=== PATIENT | male | born 1990 | race Caucasian/White ===

== ENCOUNTER 2017-02-11 13:12 | Emergency (ER) | payer MEDICAID ==
[~2017-02-11] VITALS: Ht 190.5 cm; Wt 125.0 kg
[~2017-02-11 13:12] MED LIST: AMOXICILLIN 50500 MG PO; ASPIRIN 81M81 MG/TA2 PO; ATIVAN 0.50.5 MG/TAB PO; BACTRIM PO; BRILINTA90 MG PO; BUSPAR5 MG PO; CARBAMAZEPINE; CARBATROL100 MG PO; CARBATROL200 MG PO; CLEOCIN HC150 MG/CAP PO; COZAAR 25MG25 MG/TAB PO; DESYREL 50MG50 MG PO; DIFLUCAN 100MG100 MG PO; DIFLUCAN150 MG PO; DOXYCYCLINE 10100 MG PO; EPITOL; GLUMETZA; HUMALOG100 U/ML SC; HUMALOG100 U/ML SQ; HUMULIN 70/3100 U/ML SQ; INSULIN; JANUVIA100 MG PO; KEPPRA 500MG500 MG PO; KEPPRA1000 MG PO; KLONOPIN 0.5MG0.5 MG PO; LANTUS100 U/ML; LANTUS100 U/ML SC; LANTUS100 U/ML SQ; LEVAQUIN 5500 MG/TA1 PO; LEVEMIR FLEX100 U/ML SQ; LEXAPRO20 MG PO; LIPITOR 80MG80 MG PO; LORTAB 5/500 501 TAB PO; METFOMIN HYDRO850 MG PO; MIRTAZAPINE7.5 MG PO; NAPROSYN375 MG PO; NEXIUM 40MG40 MG PO; NITRO-DUR0.4 MG/PAT TD; NITROSTAT0.4 MG/TAB SL; NORCO 325 MG-51 TAB PO; NOVOLIN 70/30 710 ML SC; NOVOLIN R100 U/ML IJ; NOVOLOG 100U100 U/M1 SQ; NOVOLOG MIX 70/33 ML SC; NYSTATIN CREAM15 GM TP; PEN-VEE K500 MG PO; PEPCID 20MG TAB20 MG PO; PERCOCET 325 MG1 TA2 PO; PHENOBARB; PHENOBARBITAL PO; PHENOBARBITAL32.4 MG PO; PHENOBARBITAL64.8 MG PO; PLAVIX 75MG TAB75 MG PO; PROTONIX 40MG T40 MG PO; SEPTRA DS 8001 TAB PO; TEGRETOL 2200 MG/TA1 PO; TEGRETOL X100 MG/TAB PO; TOPROL XL 25MG25 MG PO; TOPROL XL 50MG50 MG PO; TRILEPTAL 300M300 MG PO; TRILEPTAL600 MG PO; VALIUM 5MG T5 MG/TAB PO; VIIBRYD10 MG PO; ZITHROMAX TRI-500 MG PO; [UNRECOGNIZED DRUG - SUPPLY] TP; epitol
[2017-02-11 13:46] VITALS: BP 131/82; PULSE 88; TEMP 97.9
== END 2017-02-11 13:36 | disposition left against medical advice (07) ==
LOC: COL.ER 13:12
DX: G40.909 Epilepsy, unspecified, not intractable, without status epilepticus (principal); Z53.21 Procedure and treatment not carried out due to patient leaving prior to being seen by health care provider

== ENCOUNTER 2017-04-02 13:41 | Emergency (ER) | payer SELFPAY ==
[~2017-04-02] VITALS: Ht 193 cm; Wt 129.5 kg
[2017-04-02 13:43] VITALS: TEMP 98
[2017-04-02 14:13] LABS: BASO # 0.1 (0.0-0.2); BASO % 0.4 % (0.0-2.0); EOS # 0.5 (0.0-0.7); EOS % 4.1 % (0-4.0); GRAN # 8.2 (1.4-6.5); GRAN % 66.6 % (42.2-75.2); HEMATOCRIT 46.3 % (42.0-52.0); LYMPH # 2.6 (1.2-3.4); LYMPH % 21.1 % (20.0-51.0); MEAN CELL VOLUME 88 fl (80.0-100.0); MEAN CORPUSCULAR HEMOGLOBIN 31 pg (27.0-31.0); MEAN CORPUSCULAR HGB CONC 35 g/dl (33.0-37.0); MEAN PLATELET VOLUME 10.2 fl (7.4-10.4); MONO # 0.9 (0.1-0.6); MONO % 7.5 % (1.7-9.3); PLATELET COUNT 212 K/mm3 (130-400); RED BLOOD COUNT 5.25 M/mm3 (4.20-5.60); REDCELL DISTRIBUTION WIDTH-CV 12.8 % (11.5-14.5); WHITE BLOOD COUNT 12.3 K/mm3 (4.8-10.8)
[2017-04-02 14:27] LABS: ADJUSTED CALCIUM 9.4 mg/dL (8.4-10.2); ALANINE AMINOTRANSFERASE 32 U/L (21-72); ALBUMIN 4.4 gm/dL (3.5-5.0); ALKALINE PHOSPHATASE 87 U/L (50-136); ANION GAP 15 mmol/L (7-16); BILIRUBIN,TOTAL 0.7 mg/dL (0.0-1.0); BLOOD UREA NITROGEN 13 mg/dL (9-20); CALCIUM 9.7 mg/dL (8.4-10.2); CARBON DIOXIDE 25 mmol/L (22-30); CHLORIDE 97 mmol/L (98-107); CREATININE, serum 0.57 mg/dL (0.66-1.25); GLUCOSE 316 mg/dL (74-106); LIPASE 82 U/L (23-300); POTASSIUM 4.5 mmol/L (3.4-5.0); SODIUM 136 mmol/L (137-145); TOTAL PROTEIN 7.4 gm/dL (6.4-8.2)
[2017-04-02 14:38] LABS: B-TYPE NATRIURETIC PEPTIDE 25 pg/mL (0-125)
[2017-04-02 14:40] LABS: TROPONIN-I < 0.012 ng/mL (0.000-0.034)
[2017-04-02] MEDS ORDERED: PLAVIX 75MG TAB75 MG PO (17:17)
[2017-04-02 17:48] VITALS: BP 130/58; PULSE 102
== END 2017-04-02 17:49 | disposition home or self-care (01) ==
LOC: COL.ER 13:41
PROVIDERS: Emergency Medicine
DX: R07.9 Chest pain, unspecified (principal); I25.10 Atherosclerotic heart disease of native coronary artery without angina pectoris; Z95.5 Presence of coronary angioplasty implant and graft; T45.526A Underdosing of antithrombotic drugs, initial encounter; Z91.120 Patient's intentional underdosing of medication regimen due to financial hardship

== ENCOUNTER 2017-04-07 20:44 | Observation (INO) | payer SELFPAY ==
[~2017-04-07] VITALS: Ht 193 cm; Wt 131.4 kg
[2017-04-07 21:08] LABS: BASO % 0.4 % (0.0-2.0); EOS # 0.5 (0.0-0.7); EOS % 4.4 % (0-4.0); GRAN # 6.3 (1.4-6.5); GRAN % 60.3 % (42.2-75.2); HEMATOCRIT 45.2 % (42.0-52.0); LYMPH # 2.9 (1.2-3.4); LYMPH % 27.9 % (20.0-51.0); MEAN CELL VOLUME 87 fl (80.0-100.0); MEAN CORPUSCULAR HEMOGLOBIN 31 pg (27.0-31.0); MEAN CORPUSCULAR HGB CONC 35 g/dl (33.0-37.0); MEAN PLATELET VOLUME 10.1 fl (7.4-10.4); MONO # 0.7 (0.1-0.6); MONO % 6.8 % (1.7-9.3); PLATELET COUNT 209 K/mm3 (130-400); REDCELL DISTRIBUTION WIDTH-CV 12.5 % (11.5-14.5); WHITE BLOOD COUNT 10.4 K/mm3 (4.8-10.8)
[2017-04-07] MEDS ORDERED: GLUCOPHAGE1000 MG PO (21:16)
[2017-04-07 21:18] LABS: INR 0.9 (0.8-3.0); PROTHROMBIN TIME 10.3 SECONDS (9.7-12.8)
[2017-04-07 21:20] LABS: ADJUSTED CALCIUM 8.9 mg/dL (8.4-10.2); ALANINE AMINOTRANSFERASE 31 U/L (21-72); ALBUMIN 4.4 gm/dL (3.5-5.0); ALKALINE PHOSPHATASE 86 U/L (50-136); ANION GAP 14 mmol/L (7-16); BILIRUBIN,TOTAL 0.7 mg/dL (0.0-1.0); BLOOD UREA NITROGEN 17 mg/dL (9-20); CALCIUM 9.2 mg/dL (8.4-10.2); CARBON DIOXIDE 26 mmol/L (22-30); CHLORIDE 96 mmol/L (98-107); GLUCOSE 311 mg/dL (74-106); LIPASE 92 U/L (23-300); POTASSIUM 4.2 mmol/L (3.4-5.0); SODIUM 136 mmol/L (137-145); TOTAL PROTEIN 7.6 gm/dL (6.4-8.2)
[2017-04-07 21:21] LABS: PARTIAL THROMBOPLASTIN TIME 31.6 SECONDS (26.0-37.0)
[2017-04-07 21:28] LABS: B-TYPE NATRIURETIC PEPTIDE 13 pg/mL (0-125)
[2017-04-07 21:38] LABS: TROPONIN-I < 0.012 ng/mL (0.000-0.034)
[2017-04-08] VITALS (404 sets, daily range): BP systolic 109–1213; BP diastolic 69–101; PULSE 81–103; TEMP 98–99.1; O2SAT 93–98
[2017-04-08 01:04] LABS: MAGNESIUM 2.1 mg/dL (1.6-2.3)
[2017-04-08] MEDS ORDERED: PEPCID 20MG TAB20 MG PO (14:55)
== END 2017-04-08 16:05 | disposition home or self-care (01) ==
LOC: COL.ER 20:44 → MEDICAL 22:35 → ICU 04-08 00:24
PROVIDERS: Emergency Medicine
DX: I25.110 Atherosclerotic heart disease of native coronary artery with unstable angina pectoris (principal); Z95.5 Presence of coronary angioplasty implant and graft; I10 Essential (primary) hypertension; E78.00 Pure hypercholesterolemia, unspecified; E11.319 Type 2 diabetes mellitus with unspecified diabetic retinopathy without macular edema; Z79.4 Long term (current) use of insulin; Z79.84 Long term (current) use of oral hypoglycemic drugs; F32.9 Major depressive disorder, single episode, unspecified; G40.909 Epilepsy, unspecified, not intractable, without status epilepticus
CPT/HCPCS: C1769; C1894; G0378; J1170; J1644; J1650; J1815; J2250; J2270; J3010; J7030; Q9967

== ENCOUNTER 2017-04-23 05:03 | Emergency (ER) | payer SELFPAY ==
[~2017-04-23] VITALS: Ht 190.5 cm; Wt 129.5 kg
[~2017-04-23 05:03] MED LIST changes: +GLUCOPHAGE1000 MG PO
[2017-04-23 05:05] VITALS: TEMP 98.9
[2017-04-23 06:03] LABS: BASO % 0.4 % (0.0-2.0); EOS # 0.4 (0.0-0.7); EOS % 3.7 % (0-4.0); GRAN # 6.2 (1.4-6.5); HEMATOCRIT 46.1 % (42.0-52.0); HEMOGLOBIN 15.6 g/dl (13.5-18.0); LYMPH # 3.6 (1.2-3.4); LYMPH % 32.1 % (20.0-51.0); MEAN CELL VOLUME 88 fl (80.0-100.0); MEAN CORPUSCULAR HEMOGLOBIN 30 pg (27.0-31.0); MEAN CORPUSCULAR HGB CONC 34 g/dl (33.0-37.0); MEAN PLATELET VOLUME 10.2 fl (7.4-10.4); MONO # 0.9 (0.1-0.6); MONO % 7.7 % (1.7-9.3); PLATELET COUNT 250 K/mm3 (130-400); RED BLOOD COUNT 5.25 M/mm3 (4.20-5.60); REDCELL DISTRIBUTION WIDTH-CV 12.5 % (11.5-14.5); WHITE BLOOD COUNT 11.1 K/mm3 (4.8-10.8)
[2017-04-23 06:32] LABS: ADJUSTED CALCIUM 8.7 mg/dL (8.4-10.2); ALANINE AMINOTRANSFERASE 27 U/L (21-72); ALBUMIN 4.7 gm/dL (3.5-5.0); ALKALINE PHOSPHATASE 98 U/L (50-136); ANION GAP 16 mmol/L (7-16); BILIRUBIN,TOTAL 0.7 mg/dL (0.0-1.0); BLOOD UREA NITROGEN 12 mg/dL (9-20); C-REACTIVE PROTEIN 0.7 mg/dL (0.0-0.9); CALCIUM 9.3 mg/dL (8.4-10.2); CARBON DIOXIDE 26 mmol/L (22-30); CHLORIDE 98 mmol/L (98-107); CREATININE, serum 0.55 mg/dL (0.66-1.25); GLUCOSE 276 mg/dL (74-106); LIPASE 240 U/L (23-300); POTASSIUM 3.6 mmol/L (3.4-5.0); SODIUM 140 mmol/L (137-145); TOTAL PROTEIN 7.9 gm/dL (6.4-8.2)
[2017-04-23 06:43] LABS: TROPONIN-I < 0.012 ng/mL (0.000-0.034)
[2017-04-23 07:10] VITALS: BP 143/95; PULSE 74
[2017-04-23] MEDS ORDERED: PROTONIX 40MG T40 MG PO (08:01)
== END 2017-04-23 08:12 | disposition home or self-care (01) ==
LOC: COL.ER 05:03
PROVIDERS: Emergency Medicine
DX: R10.11 Right upper quadrant pain (principal); K21.9 Gastro-esophageal reflux disease without esophagitis; I10 Essential (primary) hypertension; E11.9 Type 2 diabetes mellitus without complications; I25.10 Atherosclerotic heart disease of native coronary artery without angina pectoris; G40.909 Epilepsy, unspecified, not intractable, without status epilepticus; I25.2 Old myocardial infarction; F32.9 Major depressive disorder, single episode, unspecified; Z87.891 Personal history of nicotine dependence; Z79.82 Long term (current) use of aspirin; Z79.84 Long term (current) use of oral hypoglycemic drugs; Z79.4 Long term (current) use of insulin; Z95.5 Presence of coronary angioplasty implant and graft; Z88.1 Allergy status to other antibiotic agents; Z88.2 Allergy status to sulfonamides; Z88.8 Allergy status to other drugs, medicaments and biological substances
CPT/HCPCS: J1170; J2405; J7030; Q9967

== ENCOUNTER 2017-06-04 00:37 | Emergency (ER) | payer SELFPAY ==
[~2017-06-04] VITALS: Ht 193 cm; Wt 129.5 kg
[2017-06-04 00:39] VITALS: TEMP 99.2
[2017-06-04 01:30] LABS: BASO % 0.4 % (0.0-2.0); EOS # 0.3 (0.0-0.7); EOS % 3.5 % (0-4.0); GRAN # 5.7 (1.4-6.5); GRAN % 68.3 % (42.2-75.2); HEMATOCRIT 40.6 % (42.0-52.0); HEMOGLOBIN 14.3 g/dl (13.5-18.0); LYMPH # 1.6 (1.2-3.4); LYMPH % 19.4 % (20.0-51.0); MEAN CELL VOLUME 87 fl (80.0-100.0); MEAN CORPUSCULAR HEMOGLOBIN 31 pg (27.0-31.0); MEAN CORPUSCULAR HGB CONC 35 g/dl (33.0-37.0); MEAN PLATELET VOLUME 10.4 fl (7.4-10.4); MONO # 0.7 (0.1-0.6); PLATELET COUNT 156 K/mm3 (130-400); RED BLOOD COUNT 4.69 M/mm3 (4.20-5.60); REDCELL DISTRIBUTION WIDTH-CV 12.3 % (11.5-14.5); WHITE BLOOD COUNT 8.3 K/mm3 (4.8-10.8)
[2017-06-04 01:40] LABS: ALBUMIN 3.9 gm/dL (3.5-5.0); BILIRUBIN,TOTAL 0.3 mg/dL (0.0-1.0); CALCIUM 8.9 mg/dL (8.4-10.2); CREATININE, serum 0.58 mg/dL (0.66-1.25); POTASSIUM 3.5 mmol/L (3.4-5.0); TOTAL PROTEIN 6.5 gm/dL (6.4-8.2)
[2017-06-04 01:56] LABS: PROLACTIN 24.9 ng/mL (3.7-17.9)
[2017-06-04] MEDS ORDERED: VALIUM 5MG T5 MG/TAB PO (02:52)
[2017-06-04 03:11] VITALS: BP 154/74; PULSE 91
== END 2017-06-04 03:11 | disposition home or self-care (01) ==
LOC: COL.ER 00:37
PROVIDERS: Emergency Medicine
DX: G40.909 Epilepsy, unspecified, not intractable, without status epilepticus (principal); I25.10 Atherosclerotic heart disease of native coronary artery without angina pectoris; Z95.5 Presence of coronary angioplasty implant and graft; E11.9 Type 2 diabetes mellitus without complications; Z79.02 Long term (current) use of antithrombotics/antiplatelets; Z79.4 Long term (current) use of insulin; F32.9 Major depressive disorder, single episode, unspecified; F41.9 Anxiety disorder, unspecified
CPT/HCPCS: J1885; J1953; J3360; J7030

== ENCOUNTER 2017-07-10 16:42 | Emergency (ER) | payer SELFPAY ==
[~2017-07-10] VITALS: Ht 193 cm; Wt 129.5 kg
[2017-07-10 16:51] VITALS: TEMP 97.8
[2017-07-10 18:14] LABS: BASO # 0.1 (0.0-0.2); BASO % 0.5 % (0.0-2.0); EOS # 0.5 (0.0-0.7); EOS % 4.9 % (0-4.0); GRAN % 58.5 % (42.2-75.2); HEMATOCRIT 47.4 % (42.0-52.0); HEMOGLOBIN 16.2 g/dl (13.5-18.0); LYMPH # 2.8 (1.2-3.4); LYMPH % 27.7 % (20.0-51.0); MEAN CELL VOLUME 87 fl (80.0-100.0); MEAN CORPUSCULAR HEMOGLOBIN 30 pg (27.0-31.0); MEAN CORPUSCULAR HGB CONC 34 g/dl (33.0-37.0); MEAN PLATELET VOLUME 10.2 fl (7.4-10.4); MONO # 0.8 (0.1-0.6); PLATELET COUNT 197 K/mm3 (130-400); RED BLOOD COUNT 5.47 M/mm3 (4.20-5.60); REDCELL DISTRIBUTION WIDTH-CV 12.2 % (11.5-14.5); WHITE BLOOD COUNT 10.3 K/mm3 (4.8-10.8)
[2017-07-10 18:19] LABS: ADJUSTED CALCIUM 9.4 mg/dL (8.4-10.2); ALBUMIN 4.2 gm/dL (3.5-5.0); BILIRUBIN,TOTAL 0.5 mg/dL (0.0-1.0); CALCIUM 9.6 mg/dL (8.4-10.2); CREATININE, serum 0.69 mg/dL (0.66-1.25); POTASSIUM 4.1 mmol/L (3.4-5.0); TOTAL PROTEIN 7.3 gm/dL (6.4-8.2)
[2017-07-10 19:30] VITALS: BP 131/81; PULSE 84
== END 2017-07-10 19:30 | disposition home or self-care (01) ==
LOC: COL.ER 16:42
PROVIDERS: Emergency Medicine
DX: G40.909 Epilepsy, unspecified, not intractable, without status epilepticus (principal); E11.9 Type 2 diabetes mellitus without complications; Z79.4 Long term (current) use of insulin; I10 Essential (primary) hypertension; F17.200 Nicotine dependence, unspecified, uncomplicated; Z79.02 Long term (current) use of antithrombotics/antiplatelets; K21.9 Gastro-esophageal reflux disease without esophagitis; E78.5 Hyperlipidemia, unspecified; Z95.5 Presence of coronary angioplasty implant and graft
CPT/HCPCS: J7030

== ENCOUNTER 2017-08-10 09:22 | Emergency (ER) | payer SELFPAY ==
[~2017-08-10] VITALS: Ht 193 cm; Wt 131.8 kg
[2017-08-10 09:30] VITALS: TEMP 97
[2017-08-10 10:35] LABS: BASO # 0.1 (0.0-0.2); BASO % 0.4 % (0.0-2.0); EOS # 0.5 (0.0-0.7); EOS % 4.2 % (0-4.0); GRAN # 7.8 (1.4-6.5); GRAN % 66.1 % (42.2-75.2); HEMATOCRIT 47.3 % (42.0-52.0); LYMPH # 2.6 (1.2-3.4); LYMPH % 22.1 % (20.0-51.0); MEAN CELL VOLUME 87 fl (80.0-100.0); MEAN CORPUSCULAR HEMOGLOBIN 30 pg (27.0-31.0); MEAN CORPUSCULAR HGB CONC 34 g/dl (33.0-37.0); MEAN PLATELET VOLUME 10.2 fl (7.4-10.4); MONO # 0.8 (0.1-0.6); MONO % 6.9 % (1.7-9.3); PLATELET COUNT 193 K/mm3 (130-400); RED BLOOD COUNT 5.43 M/mm3 (4.20-5.60); REDCELL DISTRIBUTION WIDTH-CV 12.8 % (11.5-14.5); WHITE BLOOD COUNT 11.8 K/mm3 (4.8-10.8)
[2017-08-10 10:38] LABS: PH 5 (5-8); SQUAMOUS EPITHELIAL None Seen /hpf; URINE APPEARANCE Clear; URINE BACTERIA None Seen /hpf; URINE BILIRUBIN Negative (NEGATIVE); URINE BLOOD Negative (NEGATIVE); URINE COLOR Yellow; URINE GLUCOSE 3+ (NEGATIVE); URINE KETONE Trace (NEGATIVE); URINE RBC 0-2 /hpf; URINE UROBILINOGEN Negative (NEGATIVE); URINE WBC 0-2 /hpf
[2017-08-10 10:41] LABS: ADJUSTED CALCIUM 9.3 mg/dL (8.4-10.2); ALBUMIN 4.2 gm/dL (3.5-5.0); BILIRUBIN,TOTAL 0.4 mg/dL (0.0-1.0); CALCIUM 9.5 mg/dL (8.4-10.2); CREATININE, serum 0.52 mg/dL (0.66-1.25); POTASSIUM 4.3 mmol/L (3.4-5.0); TOTAL PROTEIN 7.2 gm/dL (6.4-8.2)
[2017-08-10] MEDS ORDERED: BENTYL 20MG20 MG/TAB PO (11:32)
[2017-08-10] MEDS ORDERED: ZOFRAN ODT4 MG PO (11:32)
[2017-08-10 11:40] VITALS: BP 134/91; PULSE 85
== END 2017-08-10 11:42 | disposition home or self-care (01) ==
LOC: COL.ER 09:22
PROVIDERS: Emergency Medicine
DX: R10.31 Right lower quadrant pain (principal); I10 Essential (primary) hypertension; I25.10 Atherosclerotic heart disease of native coronary artery without angina pectoris; E11.9 Type 2 diabetes mellitus without complications; I25.2 Old myocardial infarction; F17.210 Nicotine dependence, cigarettes, uncomplicated; Z95.5 Presence of coronary angioplasty implant and graft; Z79.84 Long term (current) use of oral hypoglycemic drugs; Z79.4 Long term (current) use of insulin; Z79.82 Long term (current) use of aspirin

== ENCOUNTER 2017-08-22 05:20 | Emergency (ER) | payer SELFPAY ==
[~2017-08-22] VITALS: Ht 190.5 cm; Wt 123.4 kg
[~2017-08-22 05:20] MED LIST changes: +BENTYL 20MG20 MG/TAB PO; +ZOFRAN ODT4 MG PO
[2017-08-22 05:24] VITALS: TEMP 98.1
[2017-08-22 06:02] LABS: BASO % 0.4 % (0.0-2.0); EOS # 0.5 (0.0-0.7); EOS % 4.5 % (0-4.0); GRAN # 6.3 (1.4-6.5); GRAN % 57.2 % (42.2-75.2); HEMATOCRIT 45.3 % (42.0-52.0); HEMOGLOBIN 15.7 g/dl (13.5-18.0); LYMPH # 3.2 (1.2-3.4); LYMPH % 29.6 % (20.0-51.0); MEAN CELL VOLUME 86 fl (80.0-100.0); MEAN CORPUSCULAR HEMOGLOBIN 30 pg (27.0-31.0); MEAN CORPUSCULAR HGB CONC 35 g/dl (33.0-37.0); MEAN PLATELET VOLUME 10.1 fl (7.4-10.4); MONO # 0.9 (0.1-0.6); MONO % 8.1 % (1.7-9.3); PLATELET COUNT 201 K/mm3 (130-400); REDCELL DISTRIBUTION WIDTH-CV 12.8 % (11.5-14.5); WHITE BLOOD COUNT 10.9 K/mm3 (4.8-10.8)
[2017-08-22 06:07] LABS: INR 0.9 (0.8-3.0); PROTHROMBIN TIME 10.1 SECONDS (9.7-12.8)
[2017-08-22 06:10] LABS: ALANINE AMINOTRANSFERASE 27 U/L (21-72); ALBUMIN 4.5 gm/dL (3.5-5.0); ALKALINE PHOSPHATASE 94 U/L (50-136); ANION GAP 13 mmol/L (7-16); BILIRUBIN,TOTAL 0.5 mg/dL (0.0-1.0); BLOOD UREA NITROGEN 13 mg/dL (9-20); CALCIUM 9.4 mg/dL (8.4-10.2); CARBON DIOXIDE 23 mmol/L (22-30); CHLORIDE 100 mmol/L (98-107); CREATININE, serum 0.59 mg/dL (0.66-1.25); GLUCOSE 340 mg/dL (74-106); LIPASE 58 U/L (23-300); PARTIAL THROMBOPLASTIN TIME 32.1 SECONDS (26.0-37.0); POTASSIUM 3.8 mmol/L (3.4-5.0); SODIUM 136 mmol/L (137-145); TOTAL PROTEIN 7.6 gm/dL (6.4-8.2)
[2017-08-22 06:21] LABS: B-TYPE NATRIURETIC PEPTIDE 25 pg/mL (0-125)
[2017-08-22 06:22] LABS: TROPONIN-I < 0.012 ng/mL (0.000-0.034)
[2017-08-22] MEDS ORDERED: NOVOLOG 100U100 U/M1 SQ ×2 (07:59)
[2017-08-22] MEDS ORDERED: PROTONIX 40MG T40 MG PO (08:06)
[2017-08-22 11:55] VITALS: BP 151/96; PULSE 112
== END 2017-08-22 11:55 | disposition home or self-care (01) ==
LOC: COL.ER 05:20
PROVIDERS: Emergency Medicine
DX: R07.89 Other chest pain (principal); E11.9 Type 2 diabetes mellitus without complications; I10 Essential (primary) hypertension; I25.10 Atherosclerotic heart disease of native coronary artery without angina pectoris; E78.5 Hyperlipidemia, unspecified; Z79.82 Long term (current) use of aspirin; Z79.02 Long term (current) use of antithrombotics/antiplatelets; Z79.4 Long term (current) use of insulin; Z95.5 Presence of coronary angioplasty implant and graft
CPT/HCPCS: J1630; J1885; J1953; J2060; J2250; J7030

== ENCOUNTER 2018-07-12 21:09 | Emergency (ER) | payer SELFPAY ==
[~2018-07-12] VITALS: Ht 193 cm; Wt 115.9 kg
[2018-07-12 21:10] VITALS: TEMP 97.9
[2018-07-12 21:49] LABS: BASO % 0.3 % (0.0-2.0); EOS # 0.4 (0.0-0.7); EOS % 2.8 % (0-4.0); GRAN # 9.6 (1.4-6.5); GRAN % 76.8 % (42.2-75.2); HEMATOCRIT 42.5 % (42.0-52.0); LYMPH # 1.7 (1.2-3.4); LYMPH % 13.7 % (20.0-51.0); MEAN CELL VOLUME 85 fl (80.0-100.0); MEAN CORPUSCULAR HEMOGLOBIN 30 pg (27.0-31.0); MEAN CORPUSCULAR HGB CONC 35 g/dl (33.0-37.0); MONO # 0.8 (0.1-0.6); PLATELET COUNT 186 K/mm3 (130-400); REDCELL DISTRIBUTION WIDTH-CV 11.9 % (11.5-14.5)
[2018-07-12 22:00] LABS: ACETONE,SERUM NEGATIVE
[2018-07-12 22:02] LABS: ALANINE AMINOTRANSFERASE 21 U/L (21-72); ALBUMIN 3.9 gm/dL (3.5-5.0); ALKALINE PHOSPHATASE 89 U/L (50-136); ANION GAP 9 mmol/L (7-16); AST,SGOT 22 U/L (15-37); BILIRUBIN,TOTAL 0.3 mg/dL (0.0-1.0); BLOOD UREA NITROGEN 14 mg/dL (9-20); C-REACTIVE PROTEIN 1.3 mg/dL (0.0-0.9); CARBON DIOXIDE 26 mmol/L (22-30); CHLORIDE 99 mmol/L (98-107); CREATININE, serum 0.61 mg/dL (0.66-1.25); GLUCOSE 288 mg/dL (74-106); POTASSIUM 3.8 mmol/L (3.4-5.0); SODIUM 134 mmol/L (137-145); TOTAL PROTEIN 6.9 gm/dL (6.4-8.2)
[2018-07-12 23:00] VITALS: BP 124/70
[2018-07-13 00:07] VITALS: PULSE 74
== END 2018-07-13 00:07 | disposition home or self-care (01) ==
LOC: COL.ER 21:09
PROVIDERS: Emergency Medicine
DX: G40.909 Epilepsy, unspecified, not intractable, without status epilepticus (principal); E11.9 Type 2 diabetes mellitus without complications; I10 Essential (primary) hypertension; I25.10 Atherosclerotic heart disease of native coronary artery without angina pectoris; F17.210 Nicotine dependence, cigarettes, uncomplicated; F12.90 Cannabis use, unspecified, uncomplicated; Z79.02 Long term (current) use of antithrombotics/antiplatelets; Z79.4 Long term (current) use of insulin
CPT/HCPCS: J1815; J2060; J7030

== ENCOUNTER 2018-08-27 03:25 | Emergency (ER) | payer SELFPAY ==
[~2018-08-27] VITALS: Ht 193 cm; Wt 111.4 kg
[2018-08-27 03:30] VITALS: TEMP 97.5
[2018-08-27 04:09] LABS: BASO # 0.1 (0.0-0.2); BASO % 0.4 % (0.0-2.0); EOS # 0.5 (0.0-0.7); EOS % 4.1 % (0-4.0); GRAN # 7.3 (1.4-6.5); GRAN % 58.3 % (42.2-75.2); HEMATOCRIT 44.1 % (42.0-52.0); HEMOGLOBIN 14.8 g/dl (13.5-18.0); LYMPH # 3.7 (1.2-3.4); LYMPH % 29.8 % (20.0-51.0); MEAN CELL VOLUME 89 fl (80.0-100.0); MEAN CORPUSCULAR HEMOGLOBIN 30 pg (27.0-31.0); MEAN CORPUSCULAR HGB CONC 34 g/dl (33.0-37.0); MEAN PLATELET VOLUME 10.4 fl (7.4-10.4); MONO # 0.9 (0.1-0.6); MONO % 7.2 % (1.7-9.3); PLATELET COUNT 216 K/mm3 (130-400); PROTHROMBIN TIME 10.9 SECONDS (9.7-12.8); RED BLOOD COUNT 4.95 M/mm3 (4.20-5.60); REDCELL DISTRIBUTION WIDTH-CV 12.3 % (11.5-14.5)
[2018-08-27 04:13] LABS: ALANINE AMINOTRANSFERASE 20 U/L (21-72); ALKALINE PHOSPHATASE 92 U/L (50-136); ANION GAP 7 mmol/L (7-16); AST,SGOT 14 U/L (15-37); BILIRUBIN,TOTAL 0.2 mg/dL (0.0-1.0); BLOOD UREA NITROGEN 18 mg/dL (9-20); CALCIUM 9.3 mg/dL (8.4-10.2); CARBON DIOXIDE 32 mmol/L (22-30); CHLORIDE 95 mmol/L (98-107); CREATINE KINASE 35 U/L (55-170); CREATININE, serum 0.64 mg/dL (0.66-1.25); GLUCOSE 341 mg/dL (74-106); LIPASE 75 U/L (23-300); POTASSIUM 3.6 mmol/L (3.4-5.0); SODIUM 134 mmol/L (137-145); TOTAL PROTEIN 7.2 gm/dL (6.4-8.2)
[2018-08-27] MEDS ORDERED: KEPPRA1000 MG PO (04:21)
[2018-08-27 04:25] LABS: TROPONIN-I < 0.012 ng/mL (0.000-0.034)
[2018-08-27 06:40] VITALS: BP 109/69; PULSE 84
== END 2018-08-27 06:51 | disposition home or self-care (01) ==
LOC: COL.ER 03:25
PROVIDERS: Emergency Medicine
DX: R07.89 Other chest pain (principal); I10 Essential (primary) hypertension; E11.9 Type 2 diabetes mellitus without complications; E78.5 Hyperlipidemia, unspecified; G40.909 Epilepsy, unspecified, not intractable, without status epilepticus; F12.90 Cannabis use, unspecified, uncomplicated; Z90.89 Acquired absence of other organs; F17.210 Nicotine dependence, cigarettes, uncomplicated; Z79.02 Long term (current) use of antithrombotics/antiplatelets; Z95.5 Presence of coronary angioplasty implant and graft; F41.8 Other specified anxiety disorders
CPT/HCPCS: J2270; J7030

== ENCOUNTER 2018-09-07 12:24 | Emergency (ER) | payer SELFPAY ==
[~2018-09-07] VITALS: Ht 193 cm; Wt 111.4 kg
[2018-09-07 12:26] VITALS: TEMP 98.5
[2018-09-07 12:42] LABS: BASO % 0.3 % (0.0-2.0); EOS # 0.3 (0.0-0.7); EOS % 2.6 % (0-4.0); GRAN # 8.2 (1.4-6.5); GRAN % 75.5 % (42.2-75.2); HEMATOCRIT 44.9 % (42.0-52.0); HEMOGLOBIN 15.4 g/dl (13.5-18.0); LYMPH # 1.7 (1.2-3.4); LYMPH % 15.8 % (20.0-51.0); MEAN CELL VOLUME 87 fl (80.0-100.0); MEAN CORPUSCULAR HEMOGLOBIN 30 pg (27.0-31.0); MEAN CORPUSCULAR HGB CONC 34 g/dl (33.0-37.0); MEAN PLATELET VOLUME 10.3 fl (7.4-10.4); MONO # 0.6 (0.1-0.6); MONO % 5.4 % (1.7-9.3); PLATELET COUNT 189 K/mm3 (130-400); RED BLOOD COUNT 5.15 M/mm3 (4.20-5.60); REDCELL DISTRIBUTION WIDTH-CV 11.9 % (11.5-14.5)
[2018-09-07 12:50] LABS: ALBUMIN 4.1 gm/dL (3.5-5.0); BILIRUBIN,TOTAL 0.3 mg/dL (0.0-1.0); CALCIUM 9.2 mg/dL (8.4-10.2); CREATININE, serum 0.59 mg/dL (0.66-1.25); POTASSIUM 4.4 mmol/L (3.4-5.0); TOTAL PROTEIN 7.2 gm/dL (6.4-8.2)
[2018-09-07 14:01] VITALS: BP 133/85; PULSE 86
== END 2018-09-07 14:02 | disposition home or self-care (01) ==
LOC: COL.ER 12:24
PROVIDERS: Emergency Medicine
DX: G40.909 Epilepsy, unspecified, not intractable, without status epilepticus (principal); E11.9 Type 2 diabetes mellitus without complications; I25.10 Atherosclerotic heart disease of native coronary artery without angina pectoris; F17.210 Nicotine dependence, cigarettes, uncomplicated; F12.90 Cannabis use, unspecified, uncomplicated; Z79.02 Long term (current) use of antithrombotics/antiplatelets
CPT/HCPCS: J7030

== ENCOUNTER 2019-01-25 14:53 | Emergency (ER) | payer SELFPAY ==
[~2019-01-25] VITALS: Ht 193 cm; Wt 113.6 kg
[2019-01-25 14:55] VITALS: TEMP 98.4
[2019-01-25] MEDS ORDERED: DOXYCYCLINE 10100 MG PO (16:16)
[2019-01-25 16:41] VITALS: BP 140/99; PULSE 84
== END 2019-01-25 16:42 | disposition home or self-care (01) ==
LOC: COL.ER 14:53
DX: L02.214 Cutaneous abscess of groin (principal); E11.9 Type 2 diabetes mellitus without complications; F41.9 Anxiety disorder, unspecified; F32.9 Major depressive disorder, single episode, unspecified; F17.210 Nicotine dependence, cigarettes, uncomplicated; F12.10 Cannabis abuse, uncomplicated; Z79.02 Long term (current) use of antithrombotics/antiplatelets; Z79.4 Long term (current) use of insulin; Z95.5 Presence of coronary angioplasty implant and graft

== ENCOUNTER 2019-02-23 16:38 | Emergency (ER) | payer SELFPAY ==
[~2019-02-23] VITALS: Ht 193 cm; Wt 111.4 kg
[2019-02-23 16:44] VITALS: BP 121/80; TEMP 97.7
[2019-02-23] MEDS ORDERED: TUSS PO (17:54)
[2019-02-23] MEDS ORDERED: PHENERGAN 25 TA25 MG PO (17:54)
[2019-02-23 18:35] VITALS: PULSE 94
== END 2019-02-23 18:35 | disposition home or self-care (01) ==
LOC: COL.ER 16:38
DX: J10.1 Influenza due to other identified influenza virus with other respiratory manifestations (principal); Z79.02 Long term (current) use of antithrombotics/antiplatelets

== ENCOUNTER 2019-03-07 09:01 | Emergency (ER) | payer SELFPAY ==
[~2019-03-07] VITALS: Ht 193 cm; Wt 118.2 kg
[~2019-03-07 09:01] MED LIST changes: +PHENERGAN 25 TA25 MG PO; +TUSS PO
[2019-03-07 09:04] VITALS: BP 169/94; TEMP 97.3
[2019-03-07] MEDS ORDERED: CIPRODEX OT (09:34)
[2019-03-07] MEDS ORDERED: NORCO 325 MG-51 TAB PO (09:34)
[2019-03-07 10:41] VITALS: PULSE 98
== END 2019-03-07 10:43 | disposition home or self-care (01) ==
LOC: COL.ER 09:01
DX: H60.91 Unspecified otitis externa, right ear (principal); E11.9 Type 2 diabetes mellitus without complications; I51.9 Heart disease, unspecified; F17.210 Nicotine dependence, cigarettes, uncomplicated; Z79.02 Long term (current) use of antithrombotics/antiplatelets

== ENCOUNTER 2019-06-07 11:45 | Emergency (ER) | payer SELFPAY ==
[~2019-06-07] VITALS: Ht 182.9 cm; Wt 112.3 kg
[~2019-06-07 11:45] MED LIST changes: +CIPRODEX OT
[2019-06-07 11:53] VITALS: TEMP 97.5
[2019-06-07 12:16] LABS: BASO % 0.4 % (0.0-2.0); EOS # 0.4 (0.0-0.7); EOS % 3.6 % (0-4.0); GRAN # 7.6 (1.4-6.5); GRAN % 69.3 % (42.2-75.2); HEMATOCRIT 45.8 % (42.0-52.0); HEMOGLOBIN 15.8 g/dl (13.5-18.0); LYMPH # 2.2 (1.2-3.4); LYMPH % 20.3 % (20.0-51.0); MEAN CELL VOLUME 88 fl (80.0-100.0); MEAN CORPUSCULAR HEMOGLOBIN 30 pg (27.0-31.0); MEAN CORPUSCULAR HGB CONC 35 g/dl (33.0-37.0); MEAN PLATELET VOLUME 10.4 fl (7.4-10.4); MONO # 0.7 (0.1-0.6); MONO % 6.1 % (1.7-9.3); PLATELET COUNT 193 K/mm3 (130-400); RED BLOOD COUNT 5.21 M/mm3 (4.20-5.60); REDCELL DISTRIBUTION WIDTH-CV 12.2 % (11.5-14.5)
[2019-06-07 12:23] LABS: ALANINE AMINOTRANSFERASE 8 U/L (21-72); ALBUMIN 3.9 gm/dL (3.5-5.0); ALKALINE PHOSPHATASE 96 U/L (50-136); ANION GAP 12 mmol/L (7-16); AST,SGOT 20 U/L (15-37); BILIRUBIN,TOTAL 0.4 mg/dL (0.0-1.0); BLOOD UREA NITROGEN 14 mg/dL (9-20); CARBON DIOXIDE 24 mmol/L (22-30); CHLORIDE 100 mmol/L (98-107); CREATININE, serum 0.51 (0.66-1.25); LIPASE 112 U/L (23-300); MAGNESIUM 1.9 mg/dL (1.6-2.3); PHOSPHOROUS 4.2 mg/dL (2.5-4.5); POTASSIUM 4.4 mmol/L (3.4-5.0); SODIUM 136 mmol/L (137-145)
[2019-06-07 12:29] LABS: GLUCOSE 426 mg/dL (74-106)
[2019-06-07 12:39] LABS: TROPONIN-I < 0.012 ng/mL (0.000-0.035)
[2019-06-07] MEDS ORDERED: HUMALOG100 U/ML SQ (15:11)
[2019-06-07] MEDS ORDERED: LEVEMIR100 U/ML SQ (15:11)
[2019-06-07] MEDS ORDERED: GLUCOPHAGE500 MG/TAB PO (15:11)
[2019-06-07 15:16] VITALS: BP 124/83; PULSE 79
== END 2019-06-07 15:16 | disposition left against medical advice (07) ==
LOC: COL.ER 11:45
PROVIDERS: Emergency Medicine
DX: R07.9 Chest pain, unspecified (principal); I10 Essential (primary) hypertension; E11.9 Type 2 diabetes mellitus without complications; F17.210 Nicotine dependence, cigarettes, uncomplicated; Z95.5 Presence of coronary angioplasty implant and graft; Z86.69 Personal history of other diseases of the nervous system and sense organs; Z79.02 Long term (current) use of antithrombotics/antiplatelets
CPT/HCPCS: J1815

== ENCOUNTER 2019-06-28 11:31 | Inpatient (IN) | payer SELFPAY ==
[2019-06-28] VITALS (229 sets, daily range): BP systolic 121–135; BP diastolic 77–87; PULSE 64–73; TEMP 97.4; O2SAT 96–100
[~2019-06-28] VITALS: Ht 193 cm; Wt 112.7 kg
[~2019-06-28 11:31] MED LIST changes: +GLUCOPHAGE500 MG/TAB PO; +LEVEMIR100 U/ML SQ
[2019-06-28 12:07] LABS: BASO # 0.1 (0.0-0.2); BASO % 0.4 % (0.0-2.0); EOS # 0.4 (0.0-0.7); GRAN # 10.1 (1.4-6.5); GRAN % 69.5 % (42.2-75.2); HEMATOCRIT 46.7 % (42.0-52.0); HEMOGLOBIN 16.3 g/dl (13.5-18.0); LYMPH # 2.9 (1.2-3.4); LYMPH % 20.2 % (20.0-51.0); MEAN CELL VOLUME 88 fl (80.0-100.0); MEAN CORPUSCULAR HEMOGLOBIN 31 pg (27.0-31.0); MEAN CORPUSCULAR HGB CONC 35 g/dl (33.0-37.0); MEAN PLATELET VOLUME 10.4 fl (7.4-10.4); MONO % 6.6 % (1.7-9.3); PLATELET COUNT 200 K/mm3 (130-400); RED BLOOD COUNT 5.32 M/mm3 (4.20-5.60); REDCELL DISTRIBUTION WIDTH-CV 11.9 % (11.5-14.5)
[2019-06-28 12:17] LABS: INR 0.9 (0.8-3.0); PROTHROMBIN TIME 10.2 SECONDS (9.7-12.8)
[2019-06-28] MEDS ORDERED: NOVOLIN 70/30 710 ML SQ (12:40)
[2019-06-28 12:41] LABS: ALANINE AMINOTRANSFERASE 11 U/L (21-72); ALBUMIN 4.1 gm/dL (3.5-5.0); ALKALINE PHOSPHATASE 130 U/L (50-136); ANION GAP 15 mmol/L (7-16); AST,SGOT 25 U/L (15-37); BILIRUBIN,TOTAL 0.3 mg/dL (0.0-1.0); BLOOD UREA NITROGEN 19 mg/dL (9-20); CALCIUM 9.2 mg/dL (8.4-10.2); CARBON DIOXIDE 23 mmol/L (22-30); CHLORIDE 98 mmol/L (98-107); CREATININE, serum 0.57 (0.66-1.25); LIPASE 154 U/L (23-300); POTASSIUM 4.5 mmol/L (3.4-5.0); SODIUM 136 mmol/L (137-145); TOTAL PROTEIN 7.2 gm/dL (6.4-8.2)
[2019-06-28 12:44] LABS: GLUCOSE 442 mg/dL (74-106)
[2019-06-28 12:53] LABS: TROPONIN-I < 0.012 ng/mL (0.000-0.035)
--- NOTE | 2019-06-28 14:57 | NUR ---
SEE MERGE REPORT FOR MEDICATION ADMINISTRATION TIMES WELL INTRA/POST SEDATION ASSESSMENTS.
--- NOTE | 2019-06-28 16:25 | NUR ---
Pt arrived to ICU bed 8 from labeling specialist via bed. Report received from MARK Vieira. Right radial incision with TR band inflated with 16 cc air. Pt A/Ox4. c/o chest pain 03/08. Per labeling specialist RNs at bedside, drs are aware of chest pain. HR SR 60s on monitor. SBP 130s. Discussed plan of care r/t post cardiac cath checks. Pt verbalized understanding. No hematoma or drainage noted from right radial incision. Call light in reach.
[2019-06-28] MEDS ORDERED: LOPRESSOR 225 MG/TAB PO (17:03)
--- NOTE | 2019-06-28 18:40 | NUR ---
3cc air taken out of right radial TR band. No drainage or hematoma present. VSS. Pt states chest pain now 3/10 after prn fentanyl given. Pt eating dinner at this time. at bedside. Call light in reach.
--- NOTE | 2019-06-28 19:45 | NUR ---
Report given to MARK Orona at bedside. Pt wishes to leave AMA. 30 min spent with pt discussing importance of being monitored after left heart cath stent placement and risks involved. Pt's at bedside. Answered all pts questions. Pt still wishes to leave and accepts the risks if he goes home against medical advice. Dr Dixon paged.
--- NOTE | 2019-06-28 19:45 | NUR ---
Patient states desire to leave AMA. Tanvi, RN and this RN in room with patient and . All questions and concerns addressed at this time, patient still states he "wants to be home and comfortable in his bed and his to be comfortable." RN stated he advised staying and would even let stay in room, still declined. Tanvi spoke with Dr. Dixon and educated patient on importance of taking plavix, as patient has no insurance for Brilinta. Will continue to monitor.
--- NOTE | 2019-06-28 20:10 | NUR ---
Patient refusing BP checks at this time.
--- NOTE | 2019-06-28 21:00 | NUR ---
Patient still wishes to leave AMA. All questions and concerns have been addressed. RN went over what to do if bleeding and medications to take, escorted patient and out of ED doors. Passing off care of patient at this time.
== END 2019-06-28 21:02 | disposition left against medical advice (07) | DRG 247 ==
LOC: COL.ER 11:31 → ICU 14:20 → COL.ER 14:45 → ICU 17:29
PROVIDERS: Emergency Medicine; ADMIT Internal Medicine
PROC: 027034Z Dilation of Coronary Artery, One Artery with Drug-eluting Intraluminal Device, Percutaneous Approach (ICD-10-PCS; principal; 2019-06-28)
PROC: 4A023N7 Measurement of Cardiac Sampling and Pressure, Left Heart, Percutaneous Approach (ICD-10-PCS; 2019-06-28)
PROC: B2111ZZ Fluoroscopy of Multiple Coronary Arteries using Low Osmolar Contrast (ICD-10-PCS; 2019-06-28)
DX: I25.110 Atherosclerotic heart disease of native coronary artery with unstable angina pectoris (principal); G40.909 Epilepsy, unspecified, not intractable, without status epilepticus; Z95.5 Presence of coronary angioplasty implant and graft; I10 Essential (primary) hypertension; E10.65 Type 1 diabetes mellitus with hyperglycemia; F17.210 Nicotine dependence, cigarettes, uncomplicated; Z88.1 Allergy status to other antibiotic agents; Z88.2 Allergy status to sulfonamides; Z88.8 Allergy status to other drugs, medicaments and biological substances
CPT/HCPCS: 99223-AI; C1725; C1769; C1874; C1887; C9600; J1170; J1644; J1815; J2250; J3010; J7030; Q9967

== ENCOUNTER 2019-08-04 11:50 | Emergency (ER) | payer SELFPAY ==
[~2019-08-04] VITALS: Ht 193 cm; Wt 112.3 kg
[~2019-08-04 11:50] MED LIST changes: +LOPRESSOR 225 MG/TAB PO; +NOVOLIN 70/30 710 ML SQ
[2019-08-04 12:40] LABS: COLLECTION METHOD CLEAN CATCH
[2019-08-04 12:49] LABS: MUCOUS Present /lpf; PH 5 (5-8); SQUAMOUS EPITHELIAL None Seen /hpf; URINE APPEARANCE Clear; URINE BACTERIA None Seen /hpf; URINE BILIRUBIN Negative (NEGATIVE); URINE BLOOD 1+ (NEGATIVE); URINE COLOR Yellow; URINE GLUCOSE 3+ (NEGATIVE); URINE KETONE Negative (NEGATIVE); URINE LEUKOCYTE ESTERASE Negative (NEGATIVE); URINE NITRATE Negative (NEGATIVE); URINE PROTEIN(semi-quant) Negative (NEGATIVE); URINE RBC 0-2 /hpf; URINE UROBILINOGEN Negative (NEGATIVE)
[2019-08-04] MEDS ORDERED: DOXYCYCLINE 10100 MG PO (13:50)
[2019-08-04] MEDS ORDERED: NORCO 325 MG-51 TAB PO (13:50)
[2019-08-04 14:14] VITALS: BP 132/88; PULSE 86; TEMP 98
== END 2019-08-04 14:00 | disposition home or self-care (01) ==
LOC: COL.ER 11:50
PROVIDERS: Nurse Practitioner
DX: L02.214 Cutaneous abscess of groin (principal); G40.909 Epilepsy, unspecified, not intractable, without status epilepticus; F17.210 Nicotine dependence, cigarettes, uncomplicated; F12.90 Cannabis use, unspecified, uncomplicated; Z88.1 Allergy status to other antibiotic agents; Z79.02 Long term (current) use of antithrombotics/antiplatelets
CPT/HCPCS: J2270

== ENCOUNTER 2019-08-23 08:32 | Emergency (ER) | payer SELFPAY ==
[~2019-08-23] VITALS: Ht 193 cm; Wt 112.3 kg
[~2019-08-23 08:32] MED LIST changes: +CEPHALEXIN500 M1 PO
[2019-08-23 08:53] LABS: BASO # 0.1 (0.0-0.2); BASO % 0.4 % (0.0-2.0); EOS # 0.3 (0.0-0.7); EOS % 2.4 % (0-4.0); GRAN # 9.2 (1.4-6.5); GRAN % 72.7 % (42.2-75.2); HEMATOCRIT 44.4 % (42.0-52.0); HEMOGLOBIN 15.3 g/dl (13.5-18.0); LYMPH # 2.2 (1.2-3.4); MEAN CELL VOLUME 87 fl (80.0-100.0); MEAN CORPUSCULAR HEMOGLOBIN 30 pg (27.0-31.0); MEAN CORPUSCULAR HGB CONC 35 g/dl (33.0-37.0); MEAN PLATELET VOLUME 10.1 fl (7.4-10.4); MONO # 0.9 (0.1-0.6); MONO % 7.3 % (1.7-9.3); PLATELET COUNT 210 K/mm3 (130-400); RED BLOOD COUNT 5.08 M/mm3 (4.20-5.60); REDCELL DISTRIBUTION WIDTH-CV 12.1 % (11.5-14.5)
[2019-08-23 09:05] LABS: ALBUMIN 4.1 gm/dL (3.5-5.0); BILIRUBIN,TOTAL 0.2 mg/dL (0.0-1.0); CALCIUM 9.1 mg/dL (8.4-10.2); CREATININE, serum 0.72 (0.66-1.25)
[2019-08-23 09:21] LABS: PROLACTIN 16.7 ng/mL (3.7-17.9)
[2019-08-23 11:50] VITALS: BP 135/91; PULSE 84; TEMP 97.6
== END 2019-08-23 11:50 | disposition home or self-care (01) ==
LOC: COL.ER 08:32
PROVIDERS: Emergency Medicine
DX: G40.909 Epilepsy, unspecified, not intractable, without status epilepticus (principal); E11.9 Type 2 diabetes mellitus without complications; I25.10 Atherosclerotic heart disease of native coronary artery without angina pectoris; F17.210 Nicotine dependence, cigarettes, uncomplicated; Z79.02 Long term (current) use of antithrombotics/antiplatelets
CPT/HCPCS: J2060; J2405; J2550; J7030

== ENCOUNTER 2019-10-10 10:33 | Emergency (ER) | payer SELFPAY ==
[~2019-10-10] VITALS: Ht 193 cm; Wt 112.7 kg
[2019-10-10 10:39] VITALS: TEMP 98.2
[2019-10-10 11:55] LABS: BASO % 0.2 % (0.0-2.0); EOS # 0.4 (0.0-0.7); EOS % 7.1 % (0-4.0); GRAN # 3.1 (1.4-6.5); GRAN % 59.8 % (42.2-75.2); HEMATOCRIT 48.9 % (42.0-52.0); HEMOGLOBIN 17.1 g/dl (13.5-18.0); LYMPH % 18.7 % (20.0-51.0); MEAN CELL VOLUME 87 fl (80.0-100.0); MEAN CORPUSCULAR HEMOGLOBIN 30 pg (27.0-31.0); MEAN CORPUSCULAR HGB CONC 35 g/dl (33.0-37.0); MEAN PLATELET VOLUME 10.1 fl (7.4-10.4); MONO # 0.7 (0.1-0.6); MONO % 13.6 % (1.7-9.3); PLATELET COUNT 159 K/mm3 (130-400); RED BLOOD COUNT 5.65 M/mm3 (4.20-5.60)
[2019-10-10 11:57] LABS: ALANINE AMINOTRANSFERASE 15 U/L (21-72); ALBUMIN 4.2 gm/dL (3.5-5.0); ALKALINE PHOSPHATASE 111 U/L (50-136); ANION GAP 12 mmol/L (7-16); AST,SGOT 20 U/L (15-37); BILIRUBIN,TOTAL 0.3 mg/dL (0.0-1.0); BLOOD UREA NITROGEN 17 mg/dL (9-20); CALCIUM 8.8 mg/dL (8.4-10.2); CARBON DIOXIDE 23 mmol/L (22-30); CHLORIDE 98 mmol/L (98-107); CREATININE, serum 0.82 (0.66-1.25); GLUCOSE 301 mg/dL (74-106); LIPASE 34 U/L (23-300); POTASSIUM 3.9 mmol/L (3.4-5.0); SODIUM 133 mmol/L (137-145); TOTAL PROTEIN 7.4 gm/dL (6.4-8.2)
[2019-10-10 12:11] LABS: TROPONIN-I < 0.012 ng/mL (0.000-0.035)
[2019-10-10 12:14] LABS: COLLECTION METHOD CLEAN CATCH
[2019-10-10 12:35] LABS: HYALINE CAST >12 /lpf; MUCOUS Present /lpf; PH 5 (5-8); SQUAMOUS EPITHELIAL None Seen /hpf; URINE APPEARANCE Hazy; URINE BACTERIA None Seen /hpf; URINE BILIRUBIN Negative (NEGATIVE); URINE BLOOD Negative (NEGATIVE); URINE COLOR Yellow; URINE GLUCOSE 3+ (NEGATIVE); URINE KETONE Trace (NEGATIVE); URINE LEUKOCYTE ESTERASE Negative (NEGATIVE); URINE NITRATE Negative (NEGATIVE); URINE PROTEIN(semi-quant) 2+ (NEGATIVE); URINE UROBILINOGEN Negative (NEGATIVE)
[2019-10-10] MEDS ORDERED: CARAFATE S1 GM/10 ML PO (14:09)
[2019-10-10 14:19] VITALS: BP 133/95; PULSE 85
[2019-10-10] MEDS ORDERED: TRILEPTAL 300M300 MG PO (14:22)
== END 2019-10-10 14:45 | disposition home or self-care (01) ==
LOC: COL.ER 10:33
PROVIDERS: Physician Assistant
DX: K52.9 Noninfective gastroenteritis and colitis, unspecified (principal); R07.89 Other chest pain; I25.10 Atherosclerotic heart disease of native coronary artery without angina pectoris; G40.909 Epilepsy, unspecified, not intractable, without status epilepticus; E11.9 Type 2 diabetes mellitus without complications; F17.210 Nicotine dependence, cigarettes, uncomplicated; Z95.5 Presence of coronary angioplasty implant and graft; Z79.02 Long term (current) use of antithrombotics/antiplatelets
CPT/HCPCS: C9113; J2270; J2405; J7030

== ENCOUNTER 2019-11-20 11:15 | Emergency (ER) | payer OTHER ==
[~2019-11-20] VITALS: Ht 193 cm; Wt 122.7 kg
[~2019-11-20 11:15] MED LIST changes: +CARAFATE S1 GM/10 ML PO
[2019-11-20 11:50] VITALS: TEMP 97.7
[2019-11-20 12:23] LABS: BASO % 0.2 % (0.0-2.0); EOS # 0.3 (0.0-0.7); EOS % 2.8 % (0-4.0); GRAN # 5.8 (1.4-6.5); GRAN % 62.3 % (42.2-75.2); HEMATOCRIT 48.4 % (42.0-52.0); HEMOGLOBIN 16.9 g/dl (13.5-18.0); LYMPH # 2.5 (1.2-3.4); LYMPH % 27.2 % (20.0-51.0); MEAN CELL VOLUME 88 fl (80.0-100.0); MEAN CORPUSCULAR HEMOGLOBIN 31 pg (27.0-31.0); MEAN CORPUSCULAR HGB CONC 35 g/dl (33.0-37.0); MEAN PLATELET VOLUME 10.2 fl (7.4-10.4); MONO # 0.7 (0.1-0.6); MONO % 7.2 % (1.7-9.3); PLATELET COUNT 179 K/mm3 (130-400); RED BLOOD COUNT 5.51 M/mm3 (4.20-5.60)
[2019-11-20 12:41] LABS: ALANINE AMINOTRANSFERASE 15 U/L (21-72); ALBUMIN 4.4 gm/dL (3.5-5.0); ALKALINE PHOSPHATASE 102 U/L (50-136); ANION GAP 10 mmol/L (7-16); AST,SGOT 26 U/L (15-37); BILIRUBIN,TOTAL 0.4 mg/dL (0.0-1.0); BLOOD UREA NITROGEN 19 mg/dL (9-20); CALCIUM 9.3 mg/dL (8.4-10.2); CARBON DIOXIDE 24 mmol/L (22-30); CHLORIDE 100 mmol/L (98-107); CREATININE, serum 0.59 (0.66-1.25); GLUCOSE 343 mg/dL (74-106); POTASSIUM 4.4 mmol/L (3.4-5.0); SODIUM 134 mmol/L (137-145); TOTAL PROTEIN 7.4 gm/dL (6.4-8.2)
[2019-11-20 12:57] LABS: TROPONIN-I < 0.012 ng/mL (0.000-0.035)
[2019-11-20] MEDS ORDERED: NITROSTAT0.4 MG/TAB SL (16:25)
[2019-11-20 16:40] VITALS: BP 121/84; PULSE 82
== END 2019-11-20 16:45 | disposition home or self-care (01) ==
LOC: COL.ER 11:15
PROVIDERS: Physician Assistant
DX: R07.89 Other chest pain (principal); E11.9 Type 2 diabetes mellitus without complications; G40.909 Epilepsy, unspecified, not intractable, without status epilepticus; F17.210 Nicotine dependence, cigarettes, uncomplicated; Z95.9 Presence of cardiac and vascular implant and graft, unspecified; Z79.02 Long term (current) use of antithrombotics/antiplatelets
CPT/HCPCS: J2270; J7030

== ENCOUNTER 2019-11-22 12:05 | Inpatient (IN) | payer OTHER ==
[~2019-11-22] VITALS: Ht 193 cm; Wt 115.2 kg
[2019-11-22 12:19] LABS: BASO % 0.4 % (0.0-2.0); EOS # 0.3 (0.0-0.7); EOS % 2.9 % (0-4.0); GRAN # 6.7 (1.4-6.5); GRAN % 65.1 % (42.2-75.2); HEMATOCRIT 45.8 % (42.0-52.0); HEMOGLOBIN 15.9 g/dl (13.5-18.0); LYMPH # 2.5 (1.2-3.4); LYMPH % 24.3 % (20.0-51.0); MEAN CELL VOLUME 87 fl (80.0-100.0); MEAN CORPUSCULAR HEMOGLOBIN 30 pg (27.0-31.0); MEAN CORPUSCULAR HGB CONC 35 g/dl (33.0-37.0); MEAN PLATELET VOLUME 10.1 fl (7.4-10.4); MONO # 0.7 (0.1-0.6); MONO % 7.1 % (1.7-9.3); PLATELET COUNT 180 K/mm3 (130-400); RED BLOOD COUNT 5.27 M/mm3 (4.20-5.60); REDCELL DISTRIBUTION WIDTH-CV 11.9 % (11.5-14.5)
[2019-11-22 12:33] LABS: ALANINE AMINOTRANSFERASE 8 U/L (21-72); ALBUMIN 4.1 gm/dL (3.5-5.0); ALKALINE PHOSPHATASE 99 U/L (50-136); ANION GAP 11 mmol/L (7-16); AST,SGOT 21 U/L (15-37); BILIRUBIN,TOTAL 0.3 mg/dL (0.0-1.0); BLOOD UREA NITROGEN 16 mg/dL (9-20); CALCIUM 9.2 mg/dL (8.4-10.2); CARBON DIOXIDE 23 mmol/L (22-30); CHLORIDE 102 mmol/L (98-107); CREATININE, serum 0.53 (0.66-1.25); GLUCOSE 365 mg/dL (74-106); LIPASE 368 U/L (23-300); MAGNESIUM 1.7 mg/dL (1.6-2.3); POTASSIUM 4.1 mmol/L (3.4-5.0); SODIUM 135 mmol/L (137-145); TOTAL PROTEIN 7.1 gm/dL (6.4-8.2)
[2019-11-22 12:45] LABS: TROPONIN-I < 0.012 ng/mL (0.000-0.035)
[2019-11-22 15:44] VITALS: BP 123/82; PULSE 82; TEMP 97.8
[2019-11-22] MEDS ORDERED: TRILEPTAL 300M300 MG PO (16:07)
[2019-11-22 17:18] LABS: PARTIAL THROMBOPLASTIN TIME 33.6 SECONDS (26.0-37.0)
[2019-11-22 18:40] VITALS: BP 118/73; PULSE 89; TEMP 98.4
--- NOTE | 2019-11-22 19:30 | NUR ---
Admission assessment completed. Home medications updated. No complaints of nausea. He continues to have chest pain after getting nitro. Tolerating diet well. Patient stated he can not get his insulin because he does not have insurance and can not afford it. Asked if he has ever been to the health department or spoke with someone at the [facility] clinic to see if they could help. Heparin infusing at 10ml an hour as ordered. No other changes at this time. Call light within reach.
--- NOTE | 2019-11-22 20:04 | NUR ---
Pt doing well. In room with family. Hep gtt running at 10. Next re-draw at 2330. Alert and oriented with VSS. Is supposed to get stent placed tomorrow, unknown on time. Does not c/o chest pain right now. Has wound on L small toe and wounds on 3rd and 4th toe on right. Denies other needs at this time. Call light within reach, will continue to monitor
--- NOTE | 2019-11-22 21:30 | NUR ---
pt c/o left sided chest pain at a 7. prn nitro given
[2019-11-22 23:48] VITALS: BP 135/86; PULSE 79; TEMP 98.1
[2019-11-23] VITALS (643 sets, daily range): BP systolic 113–142; BP diastolic 76–98; PULSE 78–89; TEMP 97–98.6; O2SAT 91–100
--- NOTE | 2019-11-23 | NUR ---
PT HEPXA OF 0.14. BOLUED HIM 1000U AND INCREASED RATE FROM 10 TO 12.5 PER PROTOCOL
--- NOTE | 2019-11-23 01:34 | NUR ---
Pt woke up and c/o nausea. Checked BS and was 242. BP was 135/96 o2 was 98%on room air. temp or 98. States he has increased chest pain. Hospitalist called. Orders to get EKG and troponing stat and give 5units of novolog. Will call hospitalist back with results
--- NOTE | 2019-11-23 01:38 | NUR ---
Lab notified of STAT lab draw.
--- NOTE | 2019-11-23 03:08 | NUR ---
Received telephone report from MARK Taylor.
--- NOTE | 2019-11-23 03:13 | NUR ---
Arrived to the unit via stretcher. Patient is alert and able to answer questions and follow commands appropriately, however patient is drowsy and speech is slow. VS within normal limits. Reports 7/10 central to left chest pain which radiates to the left shoulder and left neck. Also reports it is sharp in nature. Some improvement with IV morphine reported. Patient states this is the same type of pain he has been experiencing. Will continue to monitor.
--- NOTE | 2019-11-23 03:24 | NUR ---
Pt transferred to IMCU due to increased chest pain and dizziness. Report given to Jesika.
--- NOTE | 2019-11-23 05:09 | NUR ---
Reporting 8/10 chest pain; same type and location as previously reported. Called RT to obtain EKG. Administered SL nitro. Will. Continue to monitor.
[2019-11-23 05:26] LABS: BASO % 0.3 % (0.0-2.0); EOS % 0.3 % (0-4.0); GRAN # 10.4 (1.4-6.5); GRAN % 82.8 % (42.2-75.2); HEMATOCRIT 46.6 % (42.0-52.0); HEMOGLOBIN 16.1 g/dl (13.5-18.0); LYMPH # 1.8 (1.2-3.4); LYMPH % 14.1 % (20.0-51.0); MEAN CELL VOLUME 88 fl (80.0-100.0); MEAN CORPUSCULAR HEMOGLOBIN 30 pg (27.0-31.0); MEAN CORPUSCULAR HGB CONC 35 g/dl (33.0-37.0); MEAN PLATELET VOLUME 10.5 fl (7.4-10.4); MONO # 0.3 (0.1-0.6); MONO % 2.2 % (1.7-9.3); PLATELET COUNT 214 K/mm3 (130-400); RED BLOOD COUNT 5.31 M/mm3 (4.20-5.60)
[2019-11-23 05:36] LABS: ANION GAP 11 mmol/L (7-16); BLOOD UREA NITROGEN 14 mg/dL (9-20); CALCIUM 9.5 mg/dL (8.4-10.2); CARBON DIOXIDE 24 mmol/L (22-30); CHLORIDE 100 mmol/L (98-107); CREATININE, serum 0.58 (0.66-1.25); GLUCOSE 295 mg/dL (74-106); POTASSIUM 4.5 mmol/L (3.4-5.0); SODIUM 136 mmol/L (137-145)
--- NOTE | 2019-11-23 05:40 | NUR ---
After receiving 3 doses of SL nitro, chest pain was minimally improved from an 8 to a 7. EKG showed normal sinus rhythm. Troponin pending. Hospitalist notified and received 1 time order to 2mg Morphine. Will administer at this time.
[2019-11-23 06:06] LABS: TROPONIN-I < 0.012 ng/mL (0.000-0.035)
--- NOTE | 2019-11-23 08:00 | NUR ---
Shift assessment complete at this time. Plan of care reviewed at bedside with patient. Additional time taken to address any other needs or concerns with patient. Vitals stable at this time. Pt reports tolerable 2/10 chest pain and declines further intervention at this time. Bed in low position, call light within reach, will continue to monitor.
--- NOTE | 2019-11-23 10:33 | NUR ---
Truant Officer met with patient to discuss discharge planning. Patient lives in [place], [place] with his Kim (ph#[phone]) and his two children, ages 8 and 5. Patient states his , Kim's phone is currently off. Patient reports his brother, Jhon's phone number is [phone]. Patient does not have insurance coverage at this time but reports he recently applied for [employer] for him and his family. Patient does not have primary care, but states he sees Vijaya Lion, Nurse Practitioner for Cardiology and Jessika Kelly, Nurse Practitioner for Neurology. SW spoke with patient about setting up primary care at [facility]. Patient is open to this and states if an appointment is made for him, he would follow up. Patient states at this time, he cannot afford all the medications he needs. Patient states he takes three of his needed prescriptions on a regular basis but cannot afford medications he needs for his diabetes, cholesterol, and blood pressure. Patient reports he uses a cane at home because he has problems with his hips. Patient has Advance Directives in EMR. Patient plans to return home upon discharge. LEOBARDO consulted with [employer] Financial Counselor who plans to meet with patient to discuss financial assistance application and follow up on [employer] application. SW to continue to follow.
--- NOTE | 2019-11-23 11:27 | NUR ---
SEE MERGE FOR MEDICATION ADMINISTRATION TIMES AND INTRA AND POST SEDATION ASSESSMENTS.
--- NOTE | 2019-11-23 12:00 | NUR ---
Pt currently in malthouse laborer for procedure.
--- NOTE | 2019-11-23 13:15 | NUR ---
Upon arrival back from Investigative Writer, Pt reports 10/[address] Alberts notified and EKG obtained with no acute findings. Orders received for 2 mg of Morphine and titration nitroglycerin orders. Will continue to monitor.
--- NOTE | 2019-11-23 13:30 | NUR ---
R femoral cath site clean, dry, et intact with no drainage or hematoma present.
--- NOTE | 2019-11-23 16:00 | NUR ---
Pt resting in bed. Reports tolerable chest pain at 5/10 severity. R femoral cath site clean, dry, et intact with no drainage or hematoma present. Bed in low position, call light within reach, will continue to monitor.
--- NOTE | 2019-11-23 19:10 | NUR ---
RECEIVED REPORT FROM MARK DE LA O. PT LYING IN BED WITH AT BEDSIDE WATCHING TV. VSS. CALL LIGHT WITHIN REACH. IV INFUSING WITHOUT DIFFICULTIES.
--- NOTE | 2019-11-23 19:12 | NUR ---
Bedside report given to MARK White.
[2019-11-24] VITALS (535 sets, daily range): BP systolic 113–126; BP diastolic 65–94; PULSE 75–89; TEMP 97–98.2; O2SAT 92–100
[2019-11-24 01:48] LABS: TRICYCLIC ANTIDEPRESS URINE NEGATIVE
--- NOTE | 2019-11-24 02:25 | NUR ---
PT C/O SADLER 09/07 AT THIS TIME. EDUCATED PT ON SIDE EFFECTS OF NITRO GTT CAN BE A SADLER. SEE GTT TITRATION. PT DENIES ANY CP AT THIS TIME. CALL LIGHT WITHIN REACH.
[2019-11-24 05:15] LABS: BASO % 0.3 % (0.0-2.0); EOS # 0.2 (0.0-0.7); EOS % 1.9 % (0-4.0); GRAN # 7.8 (1.4-6.5); GRAN % 65.4 % (42.2-75.2); HEMOGLOBIN 14.6 g/dl (13.5-18.0); LYMPH # 2.9 (1.2-3.4); LYMPH % 24.6 % (20.0-51.0); MEAN CELL VOLUME 89 fl (80.0-100.0); MEAN CORPUSCULAR HEMOGLOBIN 30 pg (27.0-31.0); MEAN CORPUSCULAR HGB CONC 34 g/dl (33.0-37.0); MEAN PLATELET VOLUME 9.9 fl (7.4-10.4); MONO # 0.9 (0.1-0.6); MONO % 7.5 % (1.7-9.3); PLATELET COUNT 181 K/mm3 (130-400); RED BLOOD COUNT 4.82 M/mm3 (4.20-5.60); REDCELL DISTRIBUTION WIDTH-CV 12.1 % (11.5-14.5)
[2019-11-24 05:25] LABS: CALCIUM 9.1 mg/dL (8.4-10.2); CREATININE, serum 0.56 (0.66-1.25); POTASSIUM 3.5 mmol/L (3.4-5.0)
--- NOTE | 2019-11-24 08:00 | NUR ---
Shift assessment complete at this time. Plan of care reviewed at bedside with patient. Additional time taken to address any other needs or concerns. Vitals stable at this time. Pt denies pain or any other discomforts. Bed in low position, call light within reach, will continue to monitor.
[2019-11-24] MEDS ORDERED: ASPIRIN E.C. 8181 MG PO (10:38)
[2019-11-24] MEDS ORDERED: TOPROL XL 50MG50 MG PO (10:40)
[2019-11-24] MEDS ORDERED: LIPITOR 40MG TA40 MG PO (10:40)
[2019-11-24] MEDS ORDERED: GLUCOPHAGE1000 MG PO (10:40)
[2019-11-24] MEDS ORDERED: PLAVIX 75MG TAB75 MG PO (10:40)
[2019-11-24] MEDS ORDERED: NITROSTAT0.4 MG/TAB SL (10:43)
--- NOTE | 2019-11-24 13:28 | NUR ---
Group Underwriter attended clinical rounds with the team. Patient to discharge today and does not have any money for medications needed upon discharge. LEOBARDO met with patient and spoke with him about past medication vouchers provided (01/15/16-$115.69, 04/08/17-149.30) and the importance of following up with [facility] for continued medication management and assistance. Patient expressed understanding. Patient states he and his just got jobs recently. LEOBARDO made patient an appointment at [facility] to follow up from hospitalization and establish care for 12/01/2019 @ 1:30pm. SW provided appointment information to patient and advised he would need to be there an hour early to complete necessary paperwork. SW also advised patient on supporting documents he would need (photo i.d., income documentation). LEOBARDO completed medication voucher for patient totaling $53.42 and faxed copies of the voucher and prescriptions to [facility]. LEOBARDO provided voucher and prescriptions to [facility]. LEOBARDO collaborated with Rodriguez, Financial Counselor who provided update on pending Medicaid application. Patient to discharge home today. No additional concerns at this time.
== END 2019-11-24 13:15 | disposition home or self-care (01) | DRG 247 ==
LOC: COL.ER 12:05 → ICU 14:27 → SURG 14:27 → ICU 11-23 03:15
PROVIDERS: Emergency Medicine; ADMIT Student in an Organized Health Care Education/Training Program
PROC: 027034Z Dilation of Coronary Artery, One Artery with Drug-eluting Intraluminal Device, Percutaneous Approach (ICD-10-PCS; principal; 2019-11-22)
PROC: 4A023N7 Measurement of Cardiac Sampling and Pressure, Left Heart, Percutaneous Approach (ICD-10-PCS; 2019-11-22)
PROC: B2111ZZ Fluoroscopy of Multiple Coronary Arteries using Low Osmolar Contrast (ICD-10-PCS; 2019-11-22)
DX: I25.110 Atherosclerotic heart disease of native coronary artery with unstable angina pectoris (principal); E11.65 Type 2 diabetes mellitus with hyperglycemia; G40.909 Epilepsy, unspecified, not intractable, without status epilepticus; Z95.5 Presence of coronary angioplasty implant and graft; Z91.14 Patient's other noncompliance with medication regimen; F17.210 Nicotine dependence, cigarettes, uncomplicated; Z88.1 Allergy status to other antibiotic agents; Z88.2 Allergy status to sulfonamides; Z88.8 Allergy status to other drugs, medicaments and biological substances
CPT/HCPCS: OP; 99233-AI; 99239; C9113; C9600; C9601; J1170; J1644; J1815; J2250; J2270; J3010; J7512; Q9967

== ENCOUNTER 2019-11-28 23:51 | Emergency (ER) | payer OTHER ==
[~2019-11-28] VITALS: Ht 193 cm; Wt 124.5 kg
[~2019-11-28 23:51] MED LIST changes: +ASPIRIN E.C. 8181 MG PO; +LIPITOR 40MG TA40 MG PO
[2019-11-29 00:46] LABS: BASO % 0.2 % (0.0-2.0); EOS # 0.3 (0.0-0.7); EOS % 1.9 % (0-4.0); GRAN # 12.1 (1.4-6.5); GRAN % 87.3 % (42.2-75.2); HEMATOCRIT 50.7 % (42.0-52.0); HEMOGLOBIN 17.2 g/dl (13.5-18.0); LYMPH # 0.6 (1.2-3.4); LYMPH % 4.4 % (20.0-51.0); MEAN CELL VOLUME 89 fl (80.0-100.0); MEAN CORPUSCULAR HEMOGLOBIN 30 pg (27.0-31.0); MEAN CORPUSCULAR HGB CONC 34 g/dl (33.0-37.0); MONO # 0.8 (0.1-0.6); MONO % 5.8 % (1.7-9.3); PLATELET COUNT 207 K/mm3 (130-400); RED BLOOD COUNT 5.73 M/mm3 (4.20-5.60); REDCELL DISTRIBUTION WIDTH-CV 11.9 % (11.5-14.5)
[2019-11-29 00:49] LABS: INR 0.9 (0.8-3.0); PROTHROMBIN TIME 10.8 SECONDS (9.7-12.8)
[2019-11-29 00:49] LABS: ARTERIAL BLD GAS O2 SATURATION 94.8 % (92-100); ARTERIAL BLD GAS TCO2 CT 19.7; ARTERIAL BLOOD GAS BASE EXCESS -5.3 (-2-2); ARTERIAL BLOOD GAS HCO3 18.7 meq/L (22-26); ARTERIAL BLOOD GAS PCO2 32.8 mmHg (35-45); ARTERIAL BLOOD GAS PO2 73.4 mmHg (80-100); ARTERIAL BLOOD GAS pH 7.37 (7.35-7.45)
[2019-11-29 00:58] LABS: ALBUMIN 4.4 gm/dL (3.5-5.0); BILIRUBIN,TOTAL 0.4 mg/dL (0.0-1.0); CALCIUM 9.1 mg/dL (8.4-10.2); CREATININE, serum 0.81 (0.66-1.25); POTASSIUM 4.4 mmol/L (3.4-5.0); TOTAL PROTEIN 7.6 gm/dL (6.4-8.2)
[2019-11-29 01:11] LABS: TROPONIN-I 0.168 ng/mL (0.000-0.035)
[2019-11-29 03:15] VITALS: BP 135/91; PULSE 116; TEMP 98.9
== END 2019-11-29 04:28 | disposition left against medical advice (07) ==
LOC: COL.ER 23:51
PROVIDERS: Emergency Medicine
DX: K52.9 Noninfective gastroenteritis and colitis, unspecified (principal); E11.65 Type 2 diabetes mellitus with hyperglycemia; I10 Essential (primary) hypertension; R79.89 Other specified abnormal findings of blood chemistry; G40.909 Epilepsy, unspecified, not intractable, without status epilepticus; F17.210 Nicotine dependence, cigarettes, uncomplicated; Z90.49 Acquired absence of other specified parts of digestive tract; Z98.890 Other specified postprocedural states; Z79.84 Long term (current) use of oral hypoglycemic drugs; Z79.82 Long term (current) use of aspirin; Z79.02 Long term (current) use of antithrombotics/antiplatelets
CPT/HCPCS: J1815; J2765; J3010; J7030